=== PATIENT | female | born 2005 | race Caucasian/White ===

== ENCOUNTER 2024-07-06 13:50 | Emergency (ER) | payer SELFPAY ==
[2024-07-06 14:14] VITALS: BP 128/77; PULSE 96; RESP 18; TEMP 98; BMI 23.9
[2024-07-06 15:54] LABS: BASO % 0.6 % (0-2.0); EOS % 0.4 % (0-4.5); HEMATOCRIT 37.1 % (32.4-45.2); HEMOGLOBIN 12.5 GM/dL (10.7-15.3); LYMPH % 24.5 % (8-40); MCH 31.1 pg (25.7-33.7); MCHC 33.6 g/dl (32.0-36.0); MEAN CELL VOLUME 92.6 fl (80-96); MEAN PLT VOLUME 9.3 fl (7.5-11.1); MONO % 6.9 % (3.8-10.2); NEUT % 67.6 % (42.8-82.8); PLATELET COUNT 273 10^3/uL (134-434); RBC 4.01 M/mm3 (3.60-5.2); RDW 13.4 % (11.6-15.6); WHITE BLOOD COUNT 6.9 K/mm3 (4.0-10.0)
[2024-07-06 16:07] LABS: HCG,QUALITATIVE URINE Positive
[2024-07-06 16:09] LABS: EPI CELLS >36 /uL (0-25.1); HYALINE CASTS 3 /uL (0-3.1); URINE APPEARANCE CLOUDY; URINE BACTERIA 1675 /uL (0-1359); URINE BILIRUBIN NEGATIVE (NEGATIVE); URINE COLOR YELLOW; URINE GLUCOSE (UA) NEGATIVE (NEGATIVE); URINE KETONE 2+ (NEGATIVE); URINE LEUK ESTERASE 2+ (NEGATIVE); URINE NITRITE NEGATIVE (NEGATIVE); URINE PROTEIN TRACE (NEGATIVE); URINE RBC 11 /uL (0-23.9); URINE WBC 453 /uL (0-25.8)
[2024-07-06 16:20] LABS: THROAT:GRP A STREP NOT DETECTED (NOTDETECTED)
[2024-07-06] MEDS ORDERED: CEPHALEXIN MONOHYDRATE 500 MG CAPSULE (UD) ONE (16:27)
[2024-07-06] MEDS: CEPHALEXIN MONOHYDRATE 500 MG CAPSULE (UD) PO ONE (16:31)
[2024-07-06 17:14] LABS: HIV INTERPRETATION NEGATIVE (NEGATIVE)
[2024-07-06 18:27] LABS: POTASSIUM 4.1 mmol/L (3.5-5.1)
[2024-07-06 18:29] LABS: CALCIUM 9.4 mg/dL (8.5-10.1)
[2024-07-06 18:30] LABS: ALBUMIN 4.1 g/dl (3.4-5.0)
[2024-07-06 18:33] LABS: CREATININE 0.5 mg/dL (0.55-1.3)
[2024-07-06 18:34] LABS: BILIRUBIN,TOTAL 0.8 mg/dL (0.2-1); TOT PROT 7.9 g/dl (6.4-8.2)
== END 2024-07-06 18:50 | disposition home or self-care (01) ==
LOC: JER 13:50
DX: N39.0 Urinary tract infection, site not specified (principal); J40 Bronchitis, not specified as acute or chronic; Z20.822 Contact with and (suspected) exposure to COVID-19
CPT/HCPCS: 0241U-QW; 36415; 80053; 81003; 84702; 84703; 85025; 86803; 86850; 86900; 86901; 87086; 87389; 87651; 99283-25

== ENCOUNTER 2024-09-04 21:53 | Emergency (ER) | payer OTHER ==
[2024-09-04 22:02] VITALS: BMI 24.0
[2024-09-04 23:20] VITALS: BP 128/78; PULSE 112; RESP 20; TEMP 97.9
[2024-09-05 00:54] LABS: HIV INTERPRETATION NEGATIVE (NEGATIVE)
== END 2024-09-05 00:32 | disposition home or self-care (01) ==
LOC: JER 21:53
DX: O26.892 Other specified pregnancy related conditions, second trimester (principal); R10.2 Pelvic and perineal pain; Z20.2 Contact with and (suspected) exposure to infections with a predominantly sexual mode of transmission; Z3A.24 24 weeks gestation of pregnancy
CPT/HCPCS: 36415; 86632; 86803; 87389; 87491; 87591; 87661; 99283-25

== ENCOUNTER 2024-11-13 19:45 | Emergency (ER) | payer OTHER ==
[2024-11-13 19:54] VITALS: BMI 28.1
[2024-11-13] MEDS ORDERED: ACETAMINOPHEN 500 MG TABLET (FP) ONE (21:07)
[2024-11-13] MEDS ORDERED: ONDANSETRON *ODT* 4 MG TABLET ONE (21:07)
[2024-11-13] MEDS: ONDANSETRON *ODT* 4 MG TABLET SL ONE (21:22)
[2024-11-13] MEDS: ACETAMINOPHEN 500 MG TABLET (FP) PO ONE (21:35)
[2024-11-13 22:35] VITALS: TEMP 98.2
[2024-11-13] MEDS: LACTATED RINGERS SOLUTION 500 ML IV ONE (23:50)
[2024-11-14] MEDS: LACTATED RINGERS SOLUTION 1,000 ML IV SCH (00:20)
[2024-11-14 01:47] VITALS: BP 119/68; PULSE 80; RESP 17
== END 2024-11-14 01:35 | disposition home or self-care (01) ==
LOC: JER 19:45
PROC: 3E0337Z Introduction of Electrolytic and Water Balance Substance into Peripheral Vein, Percutaneous Approach (ICD-10-PCS; principal; 2024-11-13)
DX: O98.513 Other viral diseases complicating pregnancy, third trimester (principal); U07.1 COVID-19; O99.891 Other specified diseases and conditions complicating pregnancy; R09.81 Nasal congestion; R05.9 Cough, unspecified; O99.513 Diseases of the respiratory system complicating pregnancy, third trimester; J34.89 Other specified disorders of nose and nasal sinuses; Z3A.30 30 weeks gestation of pregnancy
CPT/HCPCS: 0241U-QW; 99283-25; Q0162